=== PATIENT | male | born 1965 | race Caucasian/White ===

== ENCOUNTER 2020-08-25 12:08 | Outpatient (REF) | payer OTHER, SELFPAY | END 2020-08-25 12:09 | disposition home or self-care (01) | LOC: HO.HMGCLDS 12:08 | PROVIDERS: PCP Internal Medicine; Visit Provider Internal Medicine | DX: Z20.828 Contact with and (suspected) exposure to other viral communicable diseases (principal) | CPT/HCPCS: 87635 ==

== ENCOUNTER 2020-12-04 07:11 | Outpatient (REF) | payer OTHER, SELFPAY | END 2020-12-04 07:12 | disposition home or self-care (01) | LOC: HO.LAB 07:11 | PROVIDERS: Visit Provider Internal Medicine | DX: Z20.822 Contact with and (suspected) exposure to COVID-19 (principal) | CPT/HCPCS: 36415; C9803; U0003; U0005 ==

== ENCOUNTER 2021-01-02 07:12 | Emergency (ER) | payer OTHER, SELFPAY ==
--- NOTE | ~2021-01-02 | CT_ITS ---
EXAMINATION: CT ABDOMEN AND PELVIS WITHOUT CONTRAST CLINICAL INFORMATION: Right flank pain. COMPARISON: CT abdomen and pelvis 04/09/2014 TECHNIQUE: Multidetector volumetric imaging was performed from the superior aspect of the liver through the pubic symphysis. Sagittal and coronal reformatted images were obtained on the technologist's workstation. This CT examination was performed using dose optimization techniques as appropriate, variously including the following: *Automated exposure control *Adjustment of mA and/or kV according to patient size (this includes techniques or standardized protocols for targeted exams where dose is matched to indication/reason for exam; i.e. extremities or head) *Use of iterative reconstruction technique DLP: 583 mGy-cm FINDINGS: LUNG BASES: There is platelike atelectasis in the lingula. The lung bases are clear. The heart size is normal. LIVER, GALLBLADDER, AND BILIARY TREE: The liver is normal in size, shape, and attenuation. No focal hepatic lesion or biliary ductal dilatation is present. The gallbladder is unremarkable with no evidence of radiopaque gallstones, gallbladder wall thickening, or obvious pericholecystic inflammatory changes. PANCREAS: Unremarkable. SPLEEN: Unremarkable. ADRENAL GLANDS: Unremarkable. KIDNEYS AND URETERS: The kidneys are normal in size, shape, and attenuation. There is a 4 mm obstructive right proximal ureter radiopaque calculi with mild hydroureteronephrosis. There is a punctate 2 mm calcification in the upper pole calyx left kidney image 34/3. There is moderate bilateral perinephric stranding. There is a 3 mm calcification midpole right kidney and place of previously noted cyst. Three-minute calcification is seen in the lower pole cortex left kidney. A 1.46 cm hypodensity seen lower pole cortex left kidney probable small cyst. This was visualized on the previous study. BLADDER: Unremarkable. GASTROINTESTINAL TRACT: There is scattered stool and gas seen throughout the colon without distention. There are scattered colonic diverticulosis without diverticulitis. The small bowel loops are normal caliber. Appendix is normal caliber. ABDOMINAL WALL: A small umbilical hernia containing fat is noted. LYMPH NODES: Normal. VASCULAR: Unremarkable. PELVIC VISCERA: Mild prostate enlargement with periprostatic fat planes preserved. No abnormal pelvic lymph nodes or mass seen. OSSEOUS STRUCTURES: Moderate ventral spondylosis lower dorsal spine. No lytic or sclerotic process seen. CT/CT abdomen pelvis wo con IMPRESSION: 4 mm obstructive right proximal ureter stone with moderate hydroureter and hydronephrosis. Calcifications in both kidney cortex and perinephric stranding as described above. Colonic diverticulosis without diverticulitis. Mild constipation. This is a smooth
[2021-01-02 07:14] VITALS: BP 136/92; PULSE 52; RESP 20; TEMP 36.6; O2SAT 95; BMI 30.7
--- NOTE | 2021-01-02 07:33 | ED.MALEGU ---
HPI - Male Genitourinary General Chief complaint: Urogenital-Male Stated complaint: ?kidney stone Time Seen by Provider: 01/02/21 07:28 Source: patient Mode of arrival: ambulatory Limitations: no limitations History of Present Illness HPI Narrative: 55 yo R flank pain hx of renal colic - feels like stone, + nausea, no other complaints took tylenol/motrin/gabapentin [employer]IPE [employer]CR[employer]ER Complaint: other (flank pain) Onset (ago): hour(s) (few) Duration: constant Location: right flank Severity: similar to previous episodes Quality: sharp Relieving factors: none Exacerbating factors: none Associated symptoms: Reports nausea/vomiting Related Data Previous Rx's Medication Instructions Recorded hydrocodone-acetaminophen 1 tab PO Q6H PRN #12 tab 01/02/21 ondansetron 4 mg PO Q8H PRN #20 tab 01/02/21 prednisone 40 mg PO DAILY 4 Days #8 tab 01/02/21 tamsulosin 0.4 mg PO DAILY 5 Days #5 cap 01/02/21 Allergies Allergy/AdvReac Type Severity Reaction Status Date / Time No Known Allergies Allergy Unverified 07/20/20 15:37 Review of Systems Review of Systems: Constitutional : No Weight loss, No Fever, No Chills ENT/Mouth : No sore throat, No Rhinorrhea Eyes: No Swelling, No Redness Cardiovascular : No Chest Pain, No SOB, NoEdema Respiratory : No Cough, No Sputum, No Wheezing Gastrointestinal : Positive Nausea, no Vomiting, no Diarrhea, positive abdominal Pain, No Hematochezia, No Melena Genitourinary : No Dysuria, No Urinary Frequency, No Hematuria, No Urgency Musculoskeletal : No joint pain, No Myalgias, No Joint Swelling Skin : No Skin Lesions, No rash Neuro : No Weakness, No Numbness, No Dizziness, No Headache Psych : No Anxiety/Panic, No Depression Heme/Lymph: No Bruising, No Lymphadenopathy Endocrine : No Polyuria, No Polydipsia All other systems reviewed and are negative. [facility] Past Medical History Attestation statement: The following information was validated with the patient. Medical History Hernia Hypercholesteremia Kidney calculi Neuropathy Social History Social History (Updated 01/02/21 @ 07:41 by Kanchan Bowling DO) Alcohol intake: never Smoking Status: Current some day smoker Use of substances other than those prescribed or required for medical reasons: No Advance Directives: Yes Advance Directives Information Provided: Yes Advance Directives on File: No Physical Exam Vital Signs: Vital Signs: Last Vital Signs Temp 97.8 F 01/02/21 07:14 Pulse 52 01/02/21 07:14 Resp 20 01/02/21 07:14 BP 136/92 H 01/02/21 07:14 Pulse Ox 95 01/02/21 07:14 Body Mass Index 30.7 Appearance: Alert. Oriented X3. No acute distress. Eyes: Pupils equal, round and reactive to light. ENT: Pharynx normal. Neck: Normal inspection. Neck supple. CVS: Normal heart rate and rhythm. Pulses normal. Respiratory: No respiratory distress. Breath sounds normal. Abdomen: Soft and mild R mid abdomen / flank pain Skin: Skin warm and dry. Normal skin color. Normal skin turgor. Extremities: No lower extremity edema. No calf ttp Neuro: Oriented X 3. No motor deficit. No sensory deficit. Course Course Course Narrative: no vomiting, pain well controlled - stable for DC at this time will urology follow up MDM - Male Genitourinary MDM Narrative Medical decision making narrative: 55 yo male with hx of kidney stones comes in with R flank pain and some nausea feels like a stone, has not had an issue in 10 years did require stents in past, will need labs, UA, took pain medication prior to arrival and feels better, CT scan for renal colic ordered Lab Data Result diagrams: 01/02/21 07:46 01/02/21 07:46 Labs: Lab Results 01/02/21 01/02/21 01/02/21 Range/Units 07:46 07:46 07:46 WBC 7.1 (4.8-10.8) X10*3/uL RBC 5.37 (4.60-5.80) X10*6/uL Hgb 17.5 (14.0-18.0) g/dl Hct 50.2 (42-52) % MCV 93.5 (80-98) fL MCH 32.6 (27.0-33.0) pg MCHC 34.9 (31.0-36.0) g/dl RDW 12.9 (11.0-16.0) % Plt Count 218 (160-400) X10*3/uL MPV 9.8 (9.4-12.4) fL Immature Gran % (Auto) 0.4 (0.0-0.4) % Neut % (Auto) 49.2 (45-73) % Lymph % (Auto) 32.8 (20-40) % [place] % (Auto) 12.5 H (2-11) % Eos % (Auto) 4.3 H (0-4) % Baso % (Auto) 0.8 (0-2) % Lymph # (Auto) 2.3 (1.2-4.9) X10*3/uL [place] # (Auto) 0.9 (0.1-1.2) X10*3/uL Eos # (Auto) 0.3 (0.0-0.4) X10*3/uL Baso # (Auto) 0.1 (0.0-0.2) X10*3/uL Abs Immat Gran (auto) 0.03 (0.00-0.03) X10*3/uL Absolute Neuts (auto) 3.5 (2.0-8.3) X10*3/uL Absolute Nucleated RBC 0.000 (0.0-0.012) X10*3/uL Nucleated RBC % (auto) 0.0 (0.0-0.2) /100WBC Hold Blue Top SEE NOTE Sodium 143 (135-145) mmol/L Potassium 4.6 (3.3-5.1) mmol/L Chloride 110 H (96-108) mmol/L Carbon Dioxide 25 (22-29) mmol/L Anion Gap 13 (12-20) BUN 19 H (9-16) mg/dL Creatinine 1.14 (0.5-1.4) mg/dL Estim Creat Clear Calc 72.1 Estimated GFR > 60 Random Glucose 122 H (60-115) mg/dL Calcium 9.7 (8.4-10.2) mg/dL Magnesium 2.1 (1.6-2.6) mg/dL Total Bilirubin 1.0 (0.0-1.0) mg/dL Direct Bilirubin 0.4 (0.0-0.5) mg/dL AST 24 (5-37) U/L ALT 44 H (0-40) U/L Alkaline Phosphatase 93 (39-117) U/L Total Protein 6.8 (6.5-8.0) g/dL Albumin 4.3 (3.5-5.0) g/dL Lipase 72 (8-78) U/L Urine Color Urine Appearance Urine pH (5.0-8.0) Ur Specific [place] (1.005-1.025) Urine Protein (NEG-TRACE) MG/DL Urine Glucose (UA) (NEG) MG/DL Urine Ketones (NEG) MG/DL Urine Blood (NEG) Urine Nitrite (NEG) Ur Leukocyte Esterase (NEG) Urine RBC (0) /HPF Urine WBC (0-4) /HPF Ur Squamous Epith Cells /LPF Urine Bacteria /LPF 01/02/21 Range/Units 07:46 WBC (4.8-10.8) X10*3/uL RBC (4.60-5.80) X10*6/uL Hgb (14.0-18.0) g/dl Hct (42-52) % MCV (80-98) fL MCH (27.0-33.0) pg MCHC (31.0-36.0) g/dl RDW (11.0-16.0) % Plt Count (160-400) X10*3/uL MPV (9.4-12.4) fL Immature Gran % (Auto) (0.0-0.4) % Neut % (Auto) (45-73) % Lymph % (Auto) (20-40) % [place] % (Auto) (2-11) % Eos % (Auto) (0-4) % Baso % (Auto) (0-2) % Lymph # (Auto) (1.2-4.9) X10*3/uL [place] # (Auto) (0.1-1.2) X10*3/uL Eos # (Auto) (0.0-0.4) X10*3/uL Baso # (Auto) (0.0-0.2) X10*3/uL Abs Immat Gran (auto) (0.00-0.03) X10*3/uL Absolute Neuts (auto) (2.0-8.3) X10*3/uL Absolute Nucleated RBC (0.0-0.012) X10*3/uL Nucleated RBC % (auto) (0.0-0.2) /100WBC Hold Blue Top Sodium (135-145) mmol/L Potassium (3.3-5.1) mmol/L Chloride (96-108) mmol/L Carbon Dioxide (22-29) mmol/L Anion Gap (12-20) BUN (9-16) mg/dL Creatinine (0.5-1.4) mg/dL Estim Creat Clear Calc Estimated GFR Random Glucose (60-115) mg/dL Calcium (8.4-10.2) mg/dL Magnesium (1.6-2.6) mg/dL Total Bilirubin (0.0-1.0) mg/dL Direct Bilirubin (0.0-0.5) mg/dL AST (5-37) U/L ALT (0-40) U/L Alkaline Phosphatase (39-117) U/L Total Protein (6.5-8.0) g/dL Albumin (3.5-5.0) g/dL Lipase (8-78) U/L Urine Color YELLOW Urine Appearance CLEAR Urine pH 6.0 (5.0-8.0) Ur Specific [place] 1.025 (1.005-1.025) Urine Protein NEG (NEG-TRACE) MG/DL Urine Glucose (UA) NEG (NEG) MG/DL Urine Ketones NEG (NEG) MG/DL Urine Blood 2+ H (NEG) Urine Nitrite NEG (NEG) Ur Leukocyte Esterase NEG (NEG) Urine RBC 15-29 H (0) /HPF Urine WBC 0 (0-4) /HPF Ur Squamous Epith Cells TRACE /LPF Urine Bacteria NONE /LPF Discharge Plan Discharge Clinical Impression: Ureterolithiasis Patient Disposition: Home, Self-Care Instructions: Ureteral Stones (ED) Additional Instructions: return to ED for any worsening symptoms or concerns if you do not feel better in the next 48 hours please call Urology DO NOT TAKE MOTRIN, IBUPROFEN, ALEVE Prescriptions: New hydrocodone-acetaminophen 5-325 mg tablet 1 tab PO Q6H PRN (Reason: pain) Qty: 12 RF: 0 prednisone 20 mg tablet 40 mg PO DAILY 4 Days Qty: 8 RF: 0 ondansetron 4 mg tablet,disintegrating 4 mg PO Q8H PRN (Reason: nausea and vomiting) Qty: 20 RF: 0 tamsulosin 0.4 mg capsule 0.4 mg PO DAILY 5 Days Qty: 5 RF: 0 Referrals: Shashi Fofana MD [Physician] - 2 days (IF NOT BETTER) Stand Alone Forms: Work/School Release
--- NOTE | 2021-01-02 07:45 | PC.NURSE ---
this rn to bedside to attempt iv access. when this rn was about to place iv, pt jumped out of bed and ran into the corner of the room thats a big needle! pt not redirectable to bed at this time. md aware. plan for straight stick blood draw.
[2021-01-02 08:10] LABS: MANUAL DIFF FLAG NO
[2021-01-02 08:15] LABS: Basophils Absolute Auto 0.1 X10*3/uL (0.0-0.2); Basophils Percent Auto 0.8 % (0-2); Eosinophils Absolute Auto 0.3 X10*3/uL (0.0-0.4); Eosinophils Percent Auto 4.3 % (0-4); Hematocrit 50.2 % (42-52); Hemoglobin 17.5 g/dl (14.0-18.0); Imm Gran Abs Auto 0.03 X10*3/uL (0.00-0.03); Imm Gran Pct Auto 0.4 % (0.0-0.4); Lymphocytes Absolute Auto 2.3 X10*3/uL (1.2-4.9); Lymphocytes Percent Auto 32.8 % (20-40); Mean Corpuscular HGB Conc 34.9 g/dl (31.0-36.0); Mean Corpuscular Hemoglobin 32.6 pg (27.0-33.0); Mean Corpuscular Volume 93.5 fL (80-98); Mean Platelet Volume 9.8 fL (9.4-12.4); Monocytes Absolute Auto 0.9 X10*3/uL (0.1-1.2); Monocytes Percent Auto 12.5 % (2-11); Neutrophils Absolute Auto 3.5 X10*3/uL (2.0-8.3); Neutrophils Percent Auto 49.2 % (45-73); Platelet Count 218 X10*3/uL (160-400); Red Blood Count 5.37 X10*6/uL (4.60-5.80); Red Cell Distribution Width 12.9 % (11.0-16.0); White Blood Count 7.1 X10*3/uL (4.8-10.8)
[2021-01-02 08:21] LABS: Glucose Urine UA NEG (NEG); Leukocyte Esterase Urine NEG (NEG); Nitrite Urine NEG (NEG); Specific Gravity - Urine 1.025 (1.005-1.025); Urine Blood 2+ (NEG); Urine Ketones NEG (NEG); Urine Protein NEG (NEG-TRACE)
[2021-01-02 08:22] LABS: Appearance Urine CLEAR; Color Urine YELLOW
[2021-01-02 08:31] LABS: Squamous Epithelial Cell Urine TRACE /LPF; WBC Urine 0 /HPF (0-4)
[2021-01-02 08:49] LABS: Alanine Aminotransferase 44 U/L (0-40); Albumin Level 4.3 g/dL (3.5-5.0); Alkaline Phosphatase 93 U/L (39-117); Anion Gap 13 (12-20); Aspartate Amino Transferase 24 U/L (5-37); Bilirubin Direct 0.4 mg/dL (0.0-0.5); Blood Urea Nitrogen 19 mg/dL (9-16); Calcium 9.7 mg/dL (8.4-10.2); Carbon Dioxide 25 mmol/L (22-29); Chloride 110 mmol/L (96-108); Creatinine Clr Calc Pharmacy 72.1; Estimated Glomerular Filt Rate > 60; Glucose Random 122 mg/dL (60-115); Lipase 72 U/L (8-78); Magnesium 2.1 mg/dL (1.6-2.6); Potassium 4.6 mmol/L (3.3-5.1); Sodium 143 mmol/L (135-145); Total Protein 6.8 g/dL (6.5-8.0)
[2021-01-02] MEDS: Tamsulosin HCL 0.4 MG CAPSULE PO (09:16)
[2021-01-02] MEDS: predniSONE 20 MG TABLET 40 MG PO (09:16)
[2021-01-02] MEDS: HYDROcodone Bit/Acetam 5/325 TABLET 1 TAB PO (09:16)
== END 2021-01-02 09:20 | disposition home or self-care (01) ==
PROVIDERS: Emergency Provider Emergency Medicine; PCP Internal Medicine
DX: N13.2 Hydronephrosis with renal and ureteral calculous obstruction (principal); F17.200 Nicotine dependence, unspecified, uncomplicated; Z87.442 Personal history of urinary calculi
CPT/HCPCS: 36415; 74176; 80048; 80076; 81001; 83690; 83735; 85025; 96361; 96374; 96375; 99284

== ENCOUNTER → 2021-01-17 12:57 | Outpatient (BNVA) | payer OTHER, SELFPAY | PROVIDERS: PCP Internal Medicine; Visit Provider Surgery | DX: L05.01 Pilonidal cyst with abscess (principal) | CPT/HCPCS: 10060; 10080 ==

== ENCOUNTER → 2021-01-24 15:13 | Outpatient (BNVA) | payer OTHER, SELFPAY | PROVIDERS: PCP Internal Medicine; Visit Provider Surgery ==

== ENCOUNTER → 2022-07-01 11:19 | Outpatient (BNVA) | payer OTHER, SELFPAY | PROVIDERS: PCP Internal Medicine; Visit Provider Physician Assistant Medical | DX: S71.111A Laceration without foreign body, right thigh, initial encounter (principal); W26.8XXA Contact with other sharp object(s), not elsewhere classified, initial encounter | CPT/HCPCS: 12002; 99203 ==

== ENCOUNTER → 2022-07-04 07:44 | Outpatient (BNVA) | payer OTHER, SELFPAY | PROVIDERS: PCP Internal Medicine; Visit Provider Internal Medicine | DX: S71.111D Laceration without foreign body, right thigh, subsequent encounter (principal); W26.8XXD Contact with other sharp object(s), not elsewhere classified, subsequent encounter | CPT/HCPCS: 99213 ==

== ENCOUNTER → 2022-07-09 15:01 | Outpatient (BNVA) | payer OTHER, SELFPAY | PROVIDERS: PCP Internal Medicine; Visit Provider Physician Assistant Medical | DX: Z48.02 Encounter for removal of sutures (principal); S71.111D Laceration without foreign body, right thigh, subsequent encounter; L03.115 Cellulitis of right lower limb; W26.8XXD Contact with other sharp object(s), not elsewhere classified, subsequent encounter | CPT/HCPCS: 99212; 99213 ==

== ENCOUNTER → 2022-07-16 15:00 | Outpatient (BNVA) | payer OTHER, SELFPAY | PROVIDERS: PCP Internal Medicine; Visit Provider Physician Assistant Medical | DX: S71.111D Laceration without foreign body, right thigh, subsequent encounter (principal); W26.8XXD Contact with other sharp object(s), not elsewhere classified, subsequent encounter | CPT/HCPCS: 99213 ==

== ENCOUNTER 2022-08-13 12:23 | Emergency (ER) | payer OTHER, SELFPAY ==
--- NOTE | ~2022-08-13 | XR_ITS ---
EXAMINATION: XR HAND, LEFT CLINICAL INFORMATION: Thumb injury COMPARISON: None TECHNIQUE: PA, lateral, and oblique views of the left hand. FINDINGS: No acute visible fracture or dislocation. Negative ulnar variance. Cortical step-off of the articular surface of the distal radius, nonspecific and possibly representing sequela of remote trauma. Multi joint degenerative changes. Degenerative arthropathy of the first carpometacarpal joint. Joint spaces and alignment are otherwise maintained. Soft tissues are unremarkable. XR/XR hand LT 2V IMPRESSION: 1. No acute visible fracture or dislocation. 2. Negative ulnar variance. 3. Cortical step-off of the articular surface of the distal radius, nonspecific and possibly representing sequela of remote trauma. 4. Multi joint degenerative changes. 5. Degenerative arthropathy of the first carpometacarpal joint.
[2022-08-13 12:27] VITALS: BP 146/102; PULSE 75; RESP 18; O2SAT 97; BMI 30.7
--- NOTE | 2022-08-13 17:17 | ED.EXTPRO ---
HPI - Extremity Problem General Chief complaint: Extremity Injury, Upper Stated complaint: thumb swelling Time Seen by Provider: 08/13/22 17:15 Source: patient Mode of arrival: ambulatory Limitations: no limitations History of Present Illness HPI Narrative: 57 yo male presents to the ER for evaluation of left thumb pain after a possible injury at work a few days ago. He reports About 6 weeks ago he slammed his thumb under PE so with [employer]. He noticed blood under the thumb nail at that time with some instant pain but this resolved pretty quickly. He thinks a few days ago he hit the same thumb on a hammer. He reports increase in throbbing and swelling. He feels like there is pus underneath the fingernail bed. There is darkish discoloration of the finger nail bed. It is worse with palpation and range of motion. He denies any weakness, numbness, tingling. He is right-hand dominant. MD Complaint: joint pain Onset (ago): day(s) Pain Consistency: constant Location: left and upper extremity Severity scale (1-10): 8 Quality: aching, constant and other ( Throbbing) Radiation: distal Relieving factors: elevation Exacerbating factors: range of motion and palpation Associated symptoms: denies other symptoms Related Data Home Medications Medication Instructions Recorded Confirmed bupropion HCl (smoking deter) 150 150 mg PO BID 01/17/21 01/24/21 mg tablet,12 hr sustained-release(smoking deterrent) fluoxetine 20 mg capsule 20 mg PO DAILY 01/17/21 01/24/21 gabapentin 600 mg tablet 600 mg PO TID 01/17/21 01/24/21 Previous Rx's Medication Instructions Recorded hydrocodone 5 mg-acetaminophen 325 1 tab PO Q6H PRN pain #12 tabs 01/02/21 mg tablet ondansetron 4 mg disintegrating 4 mg PO Q8H PRN nausea and 01/02/21 tablet vomiting #20 tabs prednisone 20 mg tablet 40 mg PO DAILY 4 days #8 tabs 01/02/21 tamsulosin 0.4 mg capsule 0.4 mg PO DAILY 5 days #5 caps 01/02/21 sulfamethoxazole 800 1 tab PO Q12H #14 tabs 01/17/21 mg-trimethoprim 160 mg tablet (Bactrim DS) amoxicillin 875 mg-potassium 1 tab PO BID #14 tabs 08/13/22 clavulanate 125 mg tablet ibuprofen 600 mg tablet 600 mg PO Q8H PRN pain #20 tabs 08/13/22 Allergies Allergy/AdvReac Type Severity Reaction Status Date / Time No Known Allergies Allergy Verified 01/17/21 13:08 Review of Systems Review of Systems: Constitutional: No Fever, No Chills Cardiovascular: No Chest Pain, No SOB Gastrointestinal: No Nausea, No Vomiting, No Diarrhea, No abdominal Pain Musculoskeletal: +joint pain, No Myalgias Skin: +Skin Lesions, No rash Neuro: No Weakness, No Numbness Heme/Lymph: + Bruising, No Lymphadenopathy PMFSH Past Medical History Medical History Hernia Hypercholesteremia Kidney calculi Neuropathy Social History Social History Alcohol intake: never Advance Directives: No Advance Directives Information Provided: No Physical Exam Vital Signs: Vital Signs: Last Vital Signs Pulse 75 08/13/22 12:27 Resp 18 08/13/22 12:27 BP 146/102 H 08/13/22 12:27 Pulse Ox 97 08/13/22 12:27 O2 Del Method 08/13/22 12:27 BMI result Body Mass Index 30.7 Appearance: Alert. Oriented X3. No acute distress. HEENT: normal inspection CVS: Normal heart rate and rhythm. Pulses normal. Respiratory: No respiratory distress. Skin: Skin warm and dry. Normal skin color. Normal skin turgor. No rashes. Extremities: left thumb with a small area of darkened discoloration in the middle of the thumbnail. Tender to touch. Nail bed appears to be lifted at the base of the nail bed with whitish discoloration. No tenderness of the lateral nail bed. Normal range of motion with pain upon flexion. Cap refill less than 3 seconds. Normal finger to thumb abduction of all fingers. Neuro: Oriented X 3. Grossly normal, nonfocal Course Course Course Narrative: 57 yo male presenting with a painful left thumb after trauma. c/o throbbing. XR is negative for acute fracture, evidence of prior, old injuries. Visible blood under the nail. Amenable to trephination. Patient agrees to procedure. Reevaluation(s) Reevaluation #1: two holes cauteried in the thumb nail with expression of pus. will start on PO abx and pain control. He will do warm soaks w/ soapy water at home, monitor and come back/see his PCP if worsening. comfortable with d/c home. Procedures Nail Trephination Time out: Yes Location (finger): left and thumb Sterile prep: betadine Method of drainage: nail cautery Procedure successful: Yes Patient tolerated procedure: No Complications Discharge Plan Discharge Clinical Impression: Paronychia of finger Patient Disposition: Home, Self-Care Instructions: Paronychia (ED) Additional Instructions: Take the prescribed antibiotic as directed. Complete the entire course. Recommend using warm soapy water to soak your thumb in 2-3 times per day. Keep the area clean and covered with a Band-Aid. If you develop new or worsening symptoms call 911 or come back to the ER for further evaluation. Prescriptions: New amoxicillin-pot clavulanate 875-125 mg tablet 1 tab PO BID Qty: 14 0RF ibuprofen 600 mg tablet 600 mg PO Q8H PRN (Reason: pain) Qty: 20 0RF No Action hydrocodone-acetaminophen 5-325 mg tablet 1 tab PO Q6H PRN (Reason: pain) Qty: 12 0RF prednisone 20 mg tablet 40 mg PO DAILY 4 Days Qty: 8 0RF ondansetron 4 mg tablet,disintegrating 4 mg PO Q8H PRN (Reason: nausea and vomiting) Qty: 20 0RF tamsulosin 0.4 mg capsule 0.4 mg PO DAILY 5 Days Qty: 5 0RF fluoxetine 20 mg capsule 20 mg PO DAILY gabapentin 600 mg tablet 600 mg PO TID bupropion HCl (smoking deter) 150 mg tablet extended release 12 hr 150 mg PO BID sulfamethoxazole-trimethoprim [Bactrim DS] 800-160 mg tablet 1 tab PO Q12H Qty: 14 0RF Referrals: Wilmer Milan PA [Primary Care Provider] - Interventions: ED Discharge Assessment Last Done: 08/13/22 17:40 Discharge Date/Time: 08/13/22 17:40
--- NOTE | 2022-08-13 17:39 | PC.NURSE ---
PT EVALUATED BY PROVIDER FINGER EXAMINED AND PUS REMOVED FROM UNDER NAIL. PT TOLERATED PROCEDURE WITHOUT INCIDENT. PLAN IS FOR DC HOME WITH ABX. PT AGREEABLE TO PLAN. STATES NO QUESTIONS.
== END 2022-08-13 17:40 | disposition home or self-care (01) ==
PROVIDERS: Emergency Provider Emergency Medicine; PCP Physician Assistant Medical
DX: L03.012 Cellulitis of left finger (principal); M79.642 Pain in left hand; Z79.899 Other long term (current) drug therapy
CPT/HCPCS: 11730; 73120; 99282; 99283

== ENCOUNTER 2025-10-13 08:03 | Outpatient (AMB) | payer OTHER, SELFPAY ==
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
== END 2025-10-13 08:57 | disposition home or self-care (01) ==
LOC: HO.HPHYS 08:04
PROVIDERS: PCP Physician Assistant Medical; Visit Provider Physical Medicine & Rehabilitation
DX: M54.6 Pain in thoracic spine (principal); M54.14 Radiculopathy, thoracic region; R07.89 Other chest pain
CPT/HCPCS: 99204; G2211